=== PATIENT | female | born 1945 | race Caucasian/White ===

== ENCOUNTER 2022-08-14 14:57 | Outpatient (CLI) | payer MEDICARE, BC | END 2022-08-14 14:58 | disposition home or self-care (01) | LOC: CSHWCC 14:57 | PROVIDERS: ATTEND Nurse Practitioner Family | DX: R60.0 Localized edema (principal); S81.802D Unspecified open wound, left lower leg, subsequent encounter | CPT/HCPCS: 87070; 87205; 99203; G0463 ==